=== PATIENT | male | born 1955 | race Caucasian/White ===

== ENCOUNTER 2020-07-22 03:21 | Inpatient (IN) | payer OTHER ==
[~2020-07-22] VITALS: Ht 182.9 cm; Wt 65.8 kg
[2020-07-22 03:25] VITALS: BP 159/84
[2020-07-22 04:04] LABS: ABSOLUTE NEUTROPHILS 4.8 thou/uL (1.4-8.2); BASOPHILS 0.3 % (0.0-2.0); EOSINOPHILS 4.2 % (0.0-3.0); HEMOGLOBIN 13.9 gm/dL (14.0-18.0); LYMPHOCYTES 14.2 % (24.0-44.0); MCH 31.7 pg (26.0-34.0); MCHC 33.2 g/dL (28.0-37.0); MCV 95.4 fL (80.0-100.0); MONOCYTES 12.4 % (1.0-8.0); PLATELET COUNT 249 thou/uL (150-400); POLYS 68.9 % (36.0-66.0); RDW 15.1 % (10.5-14.5)
[2020-07-22 04:20] LABS: ANION GAP 11 mmol/L (7-16); BUN 21 mg/dL (7-18); CALCIUM 8.9 mg/dL (8.5-10.1); CHLORIDE 102 mmol/L (98-107); CO2 27 mmol/L (21-32); CREATININE 1.1 mg/dL (0.7-1.3); GLUCOSE 93 mg/dL (74-106); SODIUM 140 mmol/L (136-145)
[2020-07-22 04:31] LABS: ALBUMIN 3.7 g/dL (3.4-5.0); SGOT 20 U/L (15-37); SGPT 23 U/L (16-63); TOTAL BILIRUBIN 0.2 mg/dL (0.2-1.0); TOTAL PROTEIN 8.3 g/dL (6.4-8.2); TROPONIN-I <0.06 ng/mL (<0.06)
[2020-07-22 06:25] VITALS: BP 87/40
[2020-07-22 06:38] VITALS: BP 118/66
--- NOTE | 2020-07-22 07:05 | EKG ---
[address] [place] [address] ELECTROCARDIOGRAM REPORT Name: RAVI FRANZ Room #: [facility]#: [id number] Admission: 07/22/20 Attend Phys: Discharge: 07/22/20 Date of : 51 Report #: [id number] [facility] ED Test Date: 2020-07-22 Test Time: 03:27:32 Pat Name: RAVI FRANZ Department: Room: Gender: Clinical Nutritionist: samara : 1955 Requested By: Dany Clarke Order Number: [id number] MD: Abebe Villarreal Measurements Intervals [place] Rate: 74 P: 72 TN: 155 QRS: 99 QRSD: 104 T: 11 QT: 394 QTc: 438 Interpretive Statements Sinus rhythm Left atrial enlargement Right axis deviation Abnormal R-wave progression, late transition Minimal ST depression, inferior leads No previous ECG available for comparison Electronically Signed On 07-22-2020 7:05:28 CDT by Abebe Villarreal [email or web address] <ELECTRONICALLY SIGNED> By: Abebe Villarreal MD, [facility] 07/22/20 0705 0327 6 Abebe Villarreal MD, FACC /EPI
[2020-07-22] MEDS ORDERED: SUPER THERAVIT1 EACH PO (07:11)
[2020-07-22] MEDS ORDERED: BENADRYL25 MG PO (07:12)
--- NOTE | 2020-07-22 09:54 | NUR ---
PT TO FLOOR AT SHIFT CHANGE, ASSUMED CARE AND ADMIT COMPLETED. PT A&OX4, INDEPENDENT WITH ADL'S AND STEADY ON HIS FEET. PT SLIGHTLY ANXIOUS WITH BEING IN HOSPITAL HE HAS NO SIGNIFICANT MEDICAL HISTORY. PT HAS EXTENDED FAMILY IN TOWN BUT "DOES NOT WANT TO BURDEN THEM" WITH NOTIFICATION HE IS HOSPITALIZED. PT HAS NAMED GOOD FRIEND AUTHORIZED CONTACT. PT STATES HIS DAD AND SISTER LYNDA HAVE BOTH PASSED FROM LUNG DISEASES. PT IS FORMER SMOKER "GAVE THAT UP YEARS AGO".
--- NOTE | 2020-07-22 15:01 | 2DMMODE ---
[facility] [place] [address] 2 D/M-MODE ECHOCARDIOGRAM Name: RAVI FRANZ Room #: 358-P ADM IN M.R.#: [id number] Admission: 07/22/20 Attend Phys: Josse Pratt Discharge: Date of : 51 Report #: [id number] THIS REPORT FOR: cc: Mauricio Hunt MD, Troy A. MD Lundgren, Craig H. MD [facility] ~ APPROVED REPORT Study performed: 07/22/2020 13:28:41 EXAM: Comprehensive 2D, Doppler, and color-flow Echocardiogram Patient Location: Bedside Room #: [facility] Status: routine BSA: 1.86 HR: 71 bpm BP: 118/66 mmHg Rhythm: NSR Other Information Study Quality: Adequate Indications Chest Pain 2D Dimensions RVDd: 41.66 mm IVSd: 8.56 (7-11mm) LVOT Diam: 20.95 (18-24mm) LVDd: 42.05 mm PWd: 8.56 (7-11mm) Ascending Ao: 26.37 (22-36mm) LVDs: 28.89 (25-40mm) Left Atrium: 21.38 (27-40mm) Aortic Root: 26.01 mm IVC: 13.00 mm Aortic Valve AoV Peak Caleb.: 1.48 m/s AO Peak Gr.: 8.76 mmHg LVOT Max P.51 mmHg LVOT Max V: 1.06 m/s ELIZABETH Vmax: 2.47 cm2 Mitral Valve E/A Ratio: 1.7 MV Decel. Time: 230.97 ms MV E Max Caleb.: 0.82 m/s [facility] [address] [place] [address] 2 D/M-MODE ECHOCARDIOGRAM Name: RAVI FRANZ Room #: 358-P [facility]#: [id number] Admission: 07/22/20 Attend Phys: Josse Lowe [facility] Discharge: Date of : 51 Report #: [id number] MV A Caleb.: 0.48 m/s MV PHT: 66.98 ms IVRT: 87.66 ms Pulmonary Valve PV Peak Caleb.: 1.09 m/s PV Peak Gr.: 4.77 mmHg Pulmonary Vein P Vein S: 0.55 m/s P Vein A: 0.31 m/s P Vein D: 0.51 m/s P Vein A Dur.: 115.3 msec P Vein S/D Ratio: 1.08 Left Ventricle The left ventricle is normal size. There is normal LV segmental wall motion. There is normal left ventricular wall thickness. Left ventricular systolic function is normal. The left ventricular ejection fraction is within the normal range. LVEF 60%. The left ventricular diastolic function is normal. Right Ventricle Right ventricle is mildly dilated. The right ventricular systolic function is normal. Atria The left atrium size is normal. The right atrium size is normal. Aortic Valve The aortic valve is normal in structure. No aortic regurgitation is present. There is no aortic valvular stenosis. Mitral Valve The mitral valve is normal in structure. There is no mitral valve regurgitation noted. No evidence of mitral valve stenosis. Tricuspid Valve The tricuspid valve is normal in structure. There is no tricuspid valve regurgitation noted. Pulmonic Valve The pulmonary valve is normal in structure. There is no pulmonic valvular regurgitation. Great Vessels The aortic root is normal in size. IVC is normal in size and collapses >50% with inspiration. [facility] [employer] [address] [place] [address] 2 D/M-MODE ECHOCARDIOGRAM Name: RAVI FRANZ Room #: 358-P [facility] IN ..#: [id number] Admission: 07/22/20 Attend Phys: Josse Pineda Discharge: Date of : 51 Report #: [id number] Pericardium There is no pericardial effusion. <Conclusion> Left ventricular systolic function is normal. There is normal LV segmental wall motion. LVEF 60%. Normal diastolic function The aortic valve is normal in structure. No aortic regurgitation or stenosis The mitral valve is normal in structure. No mitral valve regurgitation Pulmonary artery pressure could not be reliably ascertained There is no pericardial effusion. <ELECTRONICALLY SIGNED> By: Artis Vlaencia MD, [facility] 07/22/20 1501 D: [id number] Artis Valencia MD, FACC /INF
[2020-07-22 15:02] VITALS: BP 120/77
[2020-07-22 19:20] VITALS: BP 110/68
[2020-07-23 03:20] VITALS: BP 117/72
--- NOTE | 2020-07-23 03:35 | NUR ---
PT MAKING SLOW PROGRESS TOWARDS GOALS. PT INITIALLY REPORTED NO CHEST DISCOMFORT WITH INITIAL ASSESSMENT. PT REPORTEDLY HAD SOME CHEST DISCOMFORT THAT THE EPIGASTRIC LEVEL OVERNIGHT WITHOUT ALERTING NURSING STAFF. THIS AM PT STATES THAT HE IS STILL HAVING 4/10 EPIGASTRIC LEVEL DISCOMFORT. HE STATES THAT THE PAIN HAS BEEN "FLEETING" AND POSITIONAL. FURTHER STATED THAT THE PAIN WAS WORSE LYING ON HIS LEFT SIDE COMPARED TO WHEN LYING ON THE RIGHT SIDE. ALSO REPORTS PAIN WITH INSPIRATON AND SLIGHTLY MORE PAIN WITH EXPIRATION. OFFERED PAIN MEDICATION BUT HE REFUSED. STRONGLY ENCOURAGED TO CALL WITH WORSENING DISCOMFORT OR SOA. PT ALSO STATED THAT HE HAS A "HIATAL HERNIA" AND THAT HE SHARED THAT INFORMATION WITH THE PROCEDURE RN. CONTINUE TO MONITOR.
[2020-07-23 04:58] LABS: HEMATOCRIT 39.3 % (42.0-52.0); HEMOGLOBIN 13.2 gm/dL (14.0-18.0); MCH 32.1 pg (26.0-34.0); MCHC 33.6 g/dL (28.0-37.0); MCV 95.3 fL (80.0-100.0); RBC 4.13 mil/uL (4.50-6.00); RDW 15.5 % (10.5-14.5); WBC 6.1 thou/uL (4.0-11.0)
[2020-07-23 05:04] LABS: ANION GAP 7 mmol/L (7-16); BUN 25 mg/dL (7-18); CALCIUM 8.6 mg/dL (8.5-10.1); CHLORIDE 103 mmol/L (98-107); CO2 28 mmol/L (21-32); CREATININE 1.1 mg/dL (0.7-1.3); GLUCOSE 106 mg/dL (74-106); POTASSIUM 4.4 mmol/L (3.5-5.1); SODIUM 138 mmol/L (136-145); TROPONIN-I <0.06 ng/mL (<0.06)
[2020-07-23 07:12] VITALS: BP 100/57
[2020-07-23 15:14] VITALS: BP 107/60
[2020-07-23 19:44] VITALS: BP 100/56
[2020-07-24] VITALS (7 sets, daily range): BP systolic 102–132; BP diastolic 64–87
--- NOTE | 2020-07-24 04:41 | NUR ---
PT MAKING PROGRESS TOWARDS GOAL. DENIED ANY CHEST DISCOMFORT THROUGHOUT THE NIGHT.
--- NOTE | 2020-07-24 10:12 | EKG ---
[address] [place] [address] ELECTROCARDIOGRAM REPORT Name: RAVI FRANZ Room #: 358- ADM IN M.R.#: [id number] Admission: 07/22/20 Attend Phys: Josse Pratt Discharge: Date of : 51 Report #: [id number] [facility] Test Date: 2020-07-24 Test Time: 08:41:41 Pat Name: RAVI FRANZ Department: Room: 358 Gender: M Printing Machinist: LOPEZ : 1955 Requested By: Artis Valencia Order Number: [id number] MD: Artis Valencia Measurements Intervals [place] Rate: 127 P: CT: QRS: 92 QRSD: 101 T: -37 QT: 328 QTc: 477 Interpretive Statements Atrial fibrillation Rightward axis Consider left ventricular hypertrophy Nonspecific T abnormalities, inferior leads Borderline prolonged QT interval Compared to ECG 07/22/2020 03:27:32 Atrial fibrillation has replaced sinus rhythm Electronically Signed On 07-24-2020 10:11:50 CDT by Artis Valencia [email or web address] <ELECTRONICALLY SIGNED> By: Artis Valencia MD, [facility] 07/24/20 1011 0841 0841 Artis Valencia MD, [facility] /EPI
[2020-07-24] MEDS ORDERED: BAYER CHEWABLE81 MG PO (13:51)
[2020-07-24] MEDS ORDERED: TAMBOCOR 100 M100 M1 PO (13:51)
[2020-07-24] MEDS ORDERED: CEFDINIR300 MG PO (13:52)
[2020-07-24] MEDS ORDERED: CARDIZEM CD240 M1 PO (13:52)
--- NOTE | 2020-07-24 14:52 | NUR ---
PT WAS IN NSR THIS MORN @ 0730. HE WAS IN AFIB 150-160 @ 0830 WHICH WAS VERIFIED BY EKG..DR HARRIS NOTIFIED AND ORDERS RECEIVED FOR CARDZIEM BOLUS AND GTT AMD ORAL MEDS...PATIENT CONVERTED TO NSR @ 1215 AND WAS DC'D TO HOME @ 1430...CARDIOLOGY WILL CALL HIM TOMORROW TO SET UP MONITOR...
[2020-07-25 18:06] LABS: IgG 1289 mg/dL (603-1613)
== END 2020-07-24 14:40 | disposition home or self-care (01) | DRG 302 ==
LOC: ER 03:21 → 3W 06:08 → EROBS 06:08 → ER 06:55 → 3W 07:09
PROVIDERS: Emergency Medicine; Nurse Practitioner Family; Pediatrics; ADMIT Hospitalist; ATTEND Hospitalist
DX: I25.10 Atherosclerotic heart disease of native coronary artery without angina pectoris (principal); J18.9 Pneumonia, unspecified organism; I48.20 Chronic atrial fibrillation, unspecified; I10 Essential (primary) hypertension; J45.909 Unspecified asthma, uncomplicated; J34.2 Deviated nasal septum; J84.10 Pulmonary fibrosis, unspecified; Z20.822 Contact with and (suspected) exposure to COVID-19; Z87.891 Personal history of nicotine dependence; R09.1 Pleurisy
CPT/HCPCS: 10879